=== PATIENT | female | born 1950 | race Caucasian/White ===

== ENCOUNTER 2017-07-11 01:23 | Emergency (ER) | payer OTHER | END 2017-07-11 02:22 | disposition home or self-care (01) | LOC: D.ER 01:23 | DX: E86.0 Dehydration (principal); R55 Syncope and collapse ==

== ENCOUNTER 2017-10-16 09:22 | Emergency (ER) | payer OTHER ==
[~2017-10-16] VITALS: Ht 170.2 cm; Wt 67.7 kg
[2017-10-16 09:44] VITALS: Ht 170.2 cm; Wt 67.7 kg
[2017-10-16 10:31] LABS: BASOPHILS 0.3 % (0-2); EOSINOPHILS 3.8 % (0-7); HEMATOCRIT 41.7 % (36.0-48.0); HEMOGLOBIN 14.3 g/dL (12-16); IMMATURE GRANULOCYTES 0.3 % (0-5); LYMPHOCYTES 24.8 % (15-50); MCH 29.6 pg (26.0-34.0); MCHC 34.3 g/dL (31.0-37.0); MCV 86.3 fL (80.0-100.0); MEAN PLATELET VOLUME 10.6 fL (7.4-10.4); MONOCYTES 9.5 % (2-11); NEUTROPHILS 61.3 % (40-80); PLATELET COUNT 273 10x3/uL (130-400); RBC 4.83 10x6/uL (4.00-5.40); RDW 13.1 % (11.5-14.5); WBC 6.5 10x3/uL (4.8-10.8)
[2017-10-16 10:56] LABS: ALBUMIN 3.5 g/dL (3.4-5.0); ALKALINE PHOSPHATASE 67 U/L (46-116); ALT (SGPT) 20 U/L (10-68); BILIRUBIN - TOTAL 0.39 mg/dL (0.2-1.3); CALC OSMOLALITY 283 mosm/kg (275-300); CARBON DIOXIDE 28.2 mmol/L (21.0-32.0); CHLORIDE - SERUM 107 mmol/L (98-107); CREATININE - SERUM 0.8 mg/dL (0.6-1.3); GLUCOSE 107 mg/dL (74-106); POTASSIUM - SERUM 4.5 mmol/L (3.5-5.1); PROTEIN - SERUM 6.8 g/dL (6.4-8.2); SODIUM 141 mmol/L (136-145); UREA NITROGEN 20 mg/dL (7-18); eGFR NON AFRICAN AMERICAN 76 mL/min (90-120)
[2017-10-16 11:07] LABS: CREATINE KINASE 85 UL (21-215); THYROID STIMULATING HORMONE 1.69 uIU/mL (0.36-3.74)
[2017-10-16 11:12] LABS: TROPONIN-I < 0.017 ng/mL (0.000-0.060)
[2017-10-16 13:52] VITALS: BP 144/87
== END 2017-10-16 13:53 | disposition home or self-care (01) ==
LOC: D.ER 09:22
PROVIDERS: Family Medicine
DX: R55 Syncope and collapse (principal); M54.2 Cervicalgia; M54.5 Low back pain

== ENCOUNTER → 2018-08-18 08:07 | Outpatient (CLI) | payer OTHER ==
[2017-10-16 09:44] VITALS: BMI 23.4
== END | disposition home or self-care (01) ==
LOC: D.HCCARDIO 08:07
PROVIDERS: ATTEND Internal Medicine Cardiovascular Disease
DX: R07.9 Chest pain, unspecified (principal)

== ENCOUNTER 2018-09-29 12:07 | Outpatient (CLI) | payer OTHER | END 2018-09-29 18:00 | disposition home or self-care (01) | LOC: D.CATH 12:07 | DX: I20.0 Unstable angina (principal); R94.30 Abnormal result of cardiovascular function study, unspecified; R55 Syncope and collapse; Z82.49 Family history of ischemic heart disease and other diseases of the circulatory system ==

== ENCOUNTER 2019-03-12 10:27 | Emergency (ER) | payer OTHER ==
[~2019-03-12] VITALS: Ht 170.2 cm; Wt 68.6 kg
[~2019-03-12 10:27] MED LIST: CATAPRES0.1 MG PO; ISOSORBIDE MONO30 M1 PO
[2019-03-12 10:36] VITALS: Ht 170.2 cm; Wt 68.6 kg
[2019-03-12 11:01] LABS: BASOPHILS 0.4 % (0-2); EOSINOPHILS 3.6 % (0-7); HEMOGLOBIN 14.1 g/dL (12-16); IMMATURE GRANULOCYTES 0.5 % (0-5); LYMPHOCYTES 22.6 % (15-50); MCH 29.4 pg (26.0-34.0); MCHC 33.6 g/dL (31.0-37.0); MCV 87.7 fL (80.0-100.0); MEAN PLATELET VOLUME 9.8 fL (7.4-10.4); MONOCYTES 6.6 % (2-11); NEUTROPHILS 66.3 % (40-80); RBC 4.79 10x6/uL (4.00-5.40); RDW 13.1 % (11.5-14.5); WBC 7.8 10x3/uL (4.8-10.8)
[2019-03-12 11:20] LABS: PLATELET COUNT 354 10x3/uL (130-400)
[2019-03-12 11:22] LABS: CALC OSMOLALITY 281 mosm/kg (275-300); CALCIUM 8.7 mg/dL (8.5-10.1); CARBON DIOXIDE 25.3 mmol/L (21.0-32.0); CHLORIDE - SERUM 108 mmol/L (98-107); CREATININE - SERUM 0.7 mg/dL (0.6-1.3); GLUCOSE 94 mg/dL (74-106); SODIUM 142 mmol/L (136-145); UREA NITROGEN 9 mg/dL (7-18); eGFR NON AFRICAN AMERICAN 88 mL/min (90-120)
[2019-03-12 11:28] LABS: ALBUMIN 3.5 g/dL (3.4-5.0); ALKALINE PHOSPHATASE 91 U/L (46-116); ALT (SGPT) 23 U/L (10-68); BILIRUBIN - TOTAL 0.45 mg/dL (0.2-1.3); PROTEIN - SERUM 7.2 g/dL (6.4-8.2)
[2019-03-12 11:58] VITALS: BP 128/86
== END 2019-03-12 11:59 | disposition home or self-care (01) ==
LOC: D.ER 10:27
PROVIDERS: Family Medicine
DX: T81.89XA Other complications of procedures, not elsewhere classified, initial encounter (principal); I10 Essential (primary) hypertension; K21.9 Gastro-esophageal reflux disease without esophagitis; M19.90 Unspecified osteoarthritis, unspecified site; Z85.820 Personal history of malignant melanoma of skin

== ENCOUNTER → 2019-05-31 07:39 | Outpatient (CLI) | payer OTHER ==
[2019-03-12 10:36] VITALS: BMI 23.7
== END | disposition home or self-care (01) ==
LOC: D.HCCARDIO 07:39
PROVIDERS: ATTEND Internal Medicine Cardiovascular Disease
DX: I25.10 Atherosclerotic heart disease of native coronary artery without angina pectoris (principal)

== ENCOUNTER → 2020-02-16 23:08 | Outpatient (CLI) | payer OTHER ==
[2019-03-12 10:36] VITALS: BMI 23.7
== END | disposition home or self-care (01) ==
LOC: D.MAMMO 15:00
PROVIDERS: ATTEND Family Medicine
DX: Z12.31 Encounter for screening mammogram for malignant neoplasm of breast (principal)

== ENCOUNTER 2020-10-21 09:40 | Observation (INO) | payer OTHER ==
[~2020-10-21] VITALS: Ht 170.2 cm; Wt 73.2 kg
[2020-10-21] MEDS ORDERED: HYDROCHLOROTHIA25 MG PO (09:50)
[2020-10-21] MEDS ORDERED: VASOTEC10 MG PO (09:50)
[2020-10-21] MEDS ORDERED: BUPROPION XL150 MG PO (09:51)
[2020-10-21] MEDS ORDERED: OMEPRAZOLE40 MG PO (09:51)
[2020-10-21 10:23] LABS: BASOPHILS 0.4 % (0-2); EOSINOPHILS 3.5 % (0-7); HEMATOCRIT 40.6 % (36.0-48.0); HEMOGLOBIN 13.5 g/dL (12-16); LYMPHOCYTES 20.3 % (15-50); MCH 28.5 pg (26.0-34.0); MCHC 33.2 g/dL (31.0-37.0); MCV 85.7 fL (80.0-100.0); MEAN PLATELET VOLUME 7.6 fL (7.4-10.4); MONOCYTES 8.6 % (2-11); NEUTROPHILS 67.2 % (40-80); PLATELET COUNT 277 10x3/uL (130-400); RBC 4.74 10x6/uL (4.00-5.40); RDW 13.8 % (11.5-14.5)
[2020-10-21 10:30] LABS: CALC OSMOLALITY 276 mosm/kg (275-300); CALCIUM 9.1 mg/dL (8.5-10.1); CARBON DIOXIDE 26.3 mmol/L (21.0-32.0); CHLORIDE - SERUM 103 mmol/L (98-107); CREATININE - SERUM 0.8 mg/dL (0.6-1.3); GLUCOSE 100 mg/dL (74-106); POTASSIUM - SERUM 3.8 mmol/L (3.5-5.1); SODIUM 138 mmol/L (136-145); UREA NITROGEN 16 mg/dL (7-18); eGFR NON AFRICAN AMERICAN 75 mL/min (90-120)
[2020-10-21 10:53] LABS: ALBUMIN 3.4 g/dL (3.4-5.0); ALKALINE PHOSPHATASE 81 U/L (30-120); ALT (SGPT) 24 U/L (10-68); BILIRUBIN - TOTAL 0.36 mg/dL (0.2-1.3); CKMB 1.1 U/L (0.0-3.6); CREATINE KINASE 47 UL (21-215); MAGNESIUM - SERUM 1.8 mg/dL (1.8-2.4); PROTEIN - SERUM 6.8 g/dL (6.4-8.2); TROPONIN-I < 0.017 ng/mL (0.000-0.060)
--- NOTE | 2020-10-21 13:05 | NUR ---
RECEIVED REPORT FROM LEAH. PATIENT TO UNIT SOON.
[2020-10-21 13:35] LABS: CREATINE KINASE 41 UL (21-215)
[2020-10-21 13:40] LABS: TROPONIN-I < 0.017 ng/mL (0.000-0.060)
[2020-10-21 14:32] VITALS: BP 106/70
--- NOTE | 2020-10-21 14:42 | NUR ---
PATIENT ARRIVED TO UNIT VIA WHEELCHAIR AND ADMITTED TO ROOM 2112 @ 1410. RESP EVEN AND UNLABORED. 20 GAUGE TO RIGHT AC. PATIENT ALERT/ORIENTED/AMBULATORY. EKG COMPLETE AT THIS TIME. MED REQ AND QUICK START COMPLETE NOW. NO DISTRESS. ORIENTATION PROVIDED TO ROOM. PATIENT LYING IN BED WITH ATTENTION TOWARD TELEVISION AT THIS TIME. NO DISTRES.
[2020-10-21 14:54] VITALS: BP 106/70; BMI 25.2
--- NOTE | 2020-10-21 15:16 | NUR ---
MICHELLE STEVENS, PATIENTS SISTER, CELL PHONE # [phone]. PATIENT STATES HER SISTER MICHELLE HAS A BAD HABIT OF NOT ANSWERING THE [place] PHONE [phone] SO PLEASE CALL THE CELL PHONE IF NEEDED.
[2020-10-21 18:22] LABS: CKMB 0.7 U/L (0.0-3.6); CREATINE KINASE 37 UL (21-215)
[2020-10-21 18:27] LABS: TROPONIN-I < 0.017 ng/mL (0.000-0.060)
[2020-10-21 20:00] VITALS: BP 122/68
--- NOTE | 2020-10-21 20:00 | NUR ---
INITIAL ROUNDS AND ASSESSMENT COMPLETED. PT RESTING IN BED. SR 62 PER TELEMETRY. ALERT/ORIENTED. NONLABORED RESPIRATIONS ON ROOM AIR. IV TO RIGHT A/C WITH NS @ 75ML/HR. CALL LIGHT IN REACH.
[2020-10-22] VITALS: BP 106/58
[2020-10-22 01:46] LABS: CKMB 0.6 U/L (0.0-3.6); CREATINE KINASE 32 UL (21-215); TROPONIN-I < 0.017 ng/mL (0.000-0.060)
[2020-10-22 04:00] VITALS: BP 99/51
--- NOTE | 2020-10-22 05:55 | NUR ---
NO CHANGE FROM INITIAL SHIFT ASSESSMENT. PT RESTED THROUGHT THE NIGHT. NO REPORTS OF PAIN OR DISCOMFORT.
[2020-10-22 06:32] LABS: BASOPHILS 0.3 % (0-2); EOSINOPHILS 3.7 % (0-7); HEMOGLOBIN 11.9 g/dL (12-16); LYMPHOCYTES 21.8 % (15-50); MCH 29.1 pg (26.0-34.0); MCHC 33.9 g/dL (31.0-37.0); MCV 85.6 fL (80.0-100.0); MEAN PLATELET VOLUME 8.1 fL (7.4-10.4); MONOCYTES 10.1 % (2-11); NEUTROPHILS 64.1 % (40-80); PLATELET COUNT 257 10x3/uL (130-400); RBC 4.09 10x6/uL (4.00-5.40); WBC 6.5 10x3/uL (4.8-10.8)
[2020-10-22 07:04] LABS: ALBUMIN 2.8 g/dL (3.4-5.0); ALKALINE PHOSPHATASE 62 U/L (30-120); ALT (SGPT) 21 U/L (10-68); BILIRUBIN - TOTAL 0.29 mg/dL (0.2-1.3); CALC OSMOLALITY 279 mosm/kg (275-300); CALCIUM 8.2 mg/dL (8.5-10.1); CARBON DIOXIDE 23.5 mmol/L (21.0-32.0); CHLORIDE - SERUM 108 mmol/L (98-107); CREATININE - SERUM 0.8 mg/dL (0.6-1.3); GLUCOSE 96 mg/dL (74-106); MAGNESIUM - SERUM 1.7 mg/dL (1.8-2.4); POTASSIUM - SERUM 4.1 mmol/L (3.5-5.1); PROTEIN - SERUM 5.5 g/dL (6.4-8.2); SODIUM 140 mmol/L (136-145); TROPONIN-I < 0.017 ng/mL (0.000-0.060); UREA NITROGEN 15 mg/dL (7-18); eGFR NON AFRICAN AMERICAN 75 mL/min (90-120)
[2020-10-22 07:49] VITALS: BP 112/61
[2020-10-22 08:28] VITALS: Ht 170.2 cm; Wt 73.2 kg
[2020-10-22 10:53] VITALS: BP 117/65
[2020-10-22] MEDS ORDERED: BYSTOLIC5 MG PO (11:07)
--- NOTE | 2020-10-22 13:45 | NUR ---
PROVIDED VERBAL AND WRITTEN DISCHARGE TEACHING TO PT, WHO VERBALIZED UNDERSTANDING. D/C RT AC IV WITH CATHETER TIP INTACT. HEART MONITOR REMOVED AND TAKEN TO [facility] METAL FURNITURE. PT READY AFOR WHEELCHAIR.
== END 2020-10-22 13:54 | disposition home or self-care (01) ==
LOC: D.ER 09:40 → D.M2 11:21 → OBSVTIME 11:21 → D.M2 10-22 13:54
PROVIDERS: Family Medicine; ADMIT Family Medicine; ATTEND Family Medicine
DX: R00.2 Palpitations (principal); I10 Essential (primary) hypertension; K21.9 Gastro-esophageal reflux disease without esophagitis; R42 Dizziness and giddiness; F32.9 Major depressive disorder, single episode, unspecified; I25.10 Atherosclerotic heart disease of native coronary artery without angina pectoris